=== PATIENT | female | born 1990 | race Caucasian/White ===

== ENCOUNTER 2017-09-26 02:13 | Emergency (ER) | payer BC, OTHER ==
[2017-09-26] MEDS ORDERED: Sulfameth/Trimethoprim DS 800-160mg TAB ONE (02:47)
== END 2017-09-26 02:57 | disposition home or self-care (01) ==
LOC: ERS 02:13
DX: L03.112 Cellulitis of left axilla (principal); J45.909 Unspecified asthma, uncomplicated; F41.9 Anxiety disorder, unspecified; Z79.899 Other long term (current) drug therapy
CPT/HCPCS: 99283